=== PATIENT | female | born 1990 | race Caucasian/White ===

== ENCOUNTER → 2016-12-21 | Outpatient (CLI) | payer BC, OTHER ==
--- NOTE | 2016-12-21 11:12 | RADIOLOGY REPORT (SQ) ---
EXAM DESCRIPTION: U/S THYROID/SFT TISS HD NECK COMPLETED DATE/TIME: 12/21/2016 10:41 am REASON FOR STUDY: MALIGNANT NEOPLASM OF THYROID GLAND (C73) C73 MALIGNANT NEOPLASM OF THYROID GLAND COMPARISON: None. TECHNIQUE: Dynamic and static farfan-scale images acquired of the thyroid gland. Selected additional c olor/power Doppler images recorded. All images stored to PACS. LIMITATIONS: None. FINDINGS: Patient had a thyroidectomy about 1 year ago. Ultrasound of the thyroid fossa demonstrate s no residual tissue identified. No anterior cervical adenopathy. IMPRESSION: Post total thyroidectomy without residual tissue identified at ultrasound. TECHNICAL DOCUMENTATION: JOB ID: [id number] [employer]- All Rights Reserved
== END ==
LOC: RAD 08:59
PROVIDERS: ATTEND Physician Assistant
DX: C73 Malignant neoplasm of thyroid gland (principal)
CPT/HCPCS: 76536